=== PATIENT | female | born 1980 | race African-American/Black ===

== ENCOUNTER → 2020-07-15 | Outpatient (CLI) | payer BC, OTHER | LOC: ULTRA 12:46 | PROVIDERS: ATTEND Nurse Practitioner | DX: M79.662 Pain in left lower leg (principal); M79.89 Other specified soft tissue disorders ==

== ENCOUNTER → 2020-11-19 | Outpatient (CLI) | payer BC, OTHER | LOC: RAD 09:59 | PROVIDERS: ATTEND Nurse Practitioner | DX: M25.462 Effusion, left knee (principal) ==